=== PATIENT | female | born 1940 | race Caucasian/White ===

== ENCOUNTER 2020-03-05 13:03 | Emergency (ER) | payer OTHER, MEDICARE ==
[~2020-03-05] VITALS: Ht 167.6 cm; Wt 78.5 kg
[2020-03-05 13:51] VITALS: BP_SYST 144
--- NOTE | 2020-03-05 14:00 | NUR ---
Patient triaged and placed in waiting room. VSS and patient appears in no acute distress at this time. Accompanied by SELF, awaiting available bed, and MD notified of need for MSE.
--- NOTE | 2020-03-05 15:59 | NUR ---
Patient to ER bed 4 to gown for evaluation. Side rails up. Report given to LINDA KENNEY.
[2020-03-05] MEDS ORDERED: NACL 0.9% 1,000 ML IV ONE (16:16)
[2020-03-05] MEDS ORDERED: SIMV40TA5 PO (16:17)
[2020-03-05] MEDS ORDERED: ESTR42.53 TP (16:18)
--- NOTE | 2020-03-05 16:23 | NUR ---
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
[2020-03-05] MEDS ORDERED: LORazepam 2 MG/ML VIAL IVP ONE (16:30)
--- NOTE | 2020-03-05 16:36 | NUR ---
REASSESSMENT; PATIENT REMAINS SEDATE AND UNCHANGED; HR BETWEEN 118 AND 127 AFTER INJECTION
[2020-03-05 16:40] LABS: BASOPHILS # (AUTO) 0.1 K/uL (0.0-0.2); EOSINOPHILS % (AUTO) 0.1 % (0.0-4.0); HEMATOCRIT 47.5 % (36-48); HEMOGLOBIN 15.8 g/dL (12.0-16.0); LYMPHOCYTES # (AUTO) 1.8 K/uL (1.0-5.5); LYMPHOCYTES % (AUTO) 30.4 % (20.5-51.5); MEAN CORPUSCULAR HEMOGLOBIN 29 pg (27-31); MEAN CORPUSCULAR HGB CONC 33 % (32-36); MEAN CORPUSCULAR VOLUME 88 fL (79.0-98.0); MONOCYTES # (AUTO) 0.6 K/uL (0.0-1.0); MONOCYTES % (AUTO) 9.6 % (1.7-9.3); NEUTROPHILS # (AUTO) 3.6 K/uL (1.8-7.7); NEUTROPHILS % (AUTO) 58.9 % (40.0-70.0); PLATELET COUNT (AUTO) 289 K/uL (130-430); RED BLOOD CELL COUNT(AUTO) 5.38 MIL/uL (4.2-6.2); RED CELL DISTRIBUTION WIDTH 14.8 % (9.0-15.0)
[2020-03-05 16:48] LABS: ANION GAP 10 (5-15); CALCIUM 10.1 mg/dL (8.4-11.0); CHLORIDE 106 mmol/L (98-107); CREATININE 0.91 mg/dL (0.55-1.30); GLUCOSE 101 mg/dL (70-99); POTASSIUM 4.1 mmol/L (3.5-5.1); SODIUM SERUM 142 mmol/L (136-145); UREA NITROGEN, BLOOD 19 mg/dL (8-21)
[2020-03-05 16:51] LABS: PROTHROMBIN TIME 10.5 SECS (9.5-12.5)
[2020-03-05 16:52] LABS: BILIRUBIN,URINE NEGATIVE (NEGATIVE); BLOOD, URINE NEGATIVE (NEGATIVE); CLARITY/URINE CLEAR (CLEAR); COLOR,URINE YELLOW (YELLOW); GLUCOSE,URINE NEGATIVE (NEGATIVE); KETONES,URINE NEGATIVE (NEGATIVE); LEUKOCYTE ESTERASE ,URINE TRACE (NEGATIVE); NITRITE, URINE NEGATIVE (NEGATIVE); PH,URINE 5.5 (5.0-8.0); PROTEIN URINE NEGATIVE (NEGATIVE); UROBILINOGEN,URINE 0.2 (0.2-1.0)
[2020-03-05 16:55] LABS: ALANINE AMINOTRANSFERASE 35 U/L (12-78); ALBUMIN 4.1 g/dL (3.4-4.8); ASPARTATE AMINOTRANSFERASE 21 U/L (10-37); LIPASE 100 U/L (73-393); TOTAL BILIRUBIN 0.6 mg/dL (0.0-1.0)
[2020-03-05 17:00] LABS: BACTERIA,URINE FEW /HPF (None Seen); RBC,URINE 0-3 /HPF (0-3)
[2020-03-05 17:01] LABS: MUCUS,URINE None Seen /LPF (None Seen)
--- NOTE | 2020-03-05 18:28 | NUR ---
REASSESSMENT; PATIENT DENIES ANY SYMPTOMS; DISPOSITION PENDING
[2020-03-05] MEDS ORDERED: DILTIAZEM HCL 25 MG/5 ML VIAL IVP ONE (18:30)
--- NOTE | 2020-03-05 18:37 | NUR ---
IV INJECTION OVER FIVE MINUTES
--- NOTE | 2020-03-05 18:42 | NUR ---
HEART RATE SLOWER AFTER INJECTION; PATIENT REMAINS ASYMPTOMATIC AND SEDATE
--- NOTE | 2020-03-05 19:12 | NUR ---
Received report from ANNE MARIE Patton.
[2020-03-05 19:29] VITALS: BP_SYST 116
--- NOTE | 2020-03-05 19:29 | NUR ---
Patient given written and verbal discharge instructions and verbalizes understanding. ER MD discussed with patient the results and treatment provided. Patient in stable condition. ID arm band removed. IV catheter removed intact and dressing applied, no active bleeding. Rx of Ativan given. Patient educated on pain management and to follow up with PMD. If have worse symtoms, must return right away or call 911. Pain Scale 0/10. Opportunity for questions provided and answered. Medication side effect fact sheet provided.
== END 2020-03-05 19:29 | disposition home or self-care (01) ==
LOC: SED 13:03
DX: F41.9 Anxiety disorder, unspecified (principal); R00.2 Palpitations; I10 Essential (primary) hypertension; E78.5 Hyperlipidemia, unspecified; Z79.82 Long term (current) use of aspirin; Z90.710 Acquired absence of both cervix and uterus
CPT/HCPCS: 36415; 80053; 81000; 82550; 83690; 84484; 85025; 85610; 85730; 93005; 96374; 96375; 99284; J2060; J3490; J7030

== ENCOUNTER 2021-09-07 11:11 | Inpatient (IN) | payer OTHER, MEDICARE, SELFPAY ==
[~2021-09-07] VITALS: Ht 165.1 cm; Wt 76.3 kg
[2021-09-07 11:11] VITALS: BP_SYST 191
[~2021-09-07 11:11] MED LIST: ESTR42.53 TP; SIMV-46 PO
--- NOTE | 2021-09-07 11:11 | NUR ---
BROUGHT BACK TO BED #5 AND TRIAGED. REPORT GIVEN TO ELEAZAR
--- NOTE | 2021-09-07 11:33 | NUR ---
ER at bedside examining patient.
--- NOTE | 2021-09-07 11:50 | NUR ---
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 states in hind sight she has been having lower back pain on and off X 1 week and assumed it was from standing on her feet, currently pain 1/10 to right side
[2021-09-07] MEDS ORDERED: MORPHINE 4 MG INJ. 4 MG/ML VIAL IVP ONE ×2 (12:00→20:15)
--- NOTE | 2021-09-07 12:13 | NUR ---
radiology at bedside for xray
[2021-09-07 12:19] LABS: BILIRUBIN,URINE NEGATIVE (NEGATIVE); CLARITY/URINE TURBID (CLEAR); COLOR,URINE YELLOW (YELLOW); GLUCOSE,URINE NEGATIVE (NEGATIVE); KETONES,URINE NEGATIVE (NEGATIVE); LEUKOCYTE ESTERASE ,URINE NEGATIVE (NEGATIVE); NITRITE, URINE NEGATIVE (NEGATIVE); PROTEIN URINE 1+ (NEGATIVE); UROBILINOGEN,URINE 0.2 (0.2-1.0)
[2021-09-07 12:23] LABS: BLOOD, URINE TRACE (NEGATIVE)
[2021-09-07 12:37] LABS: BACTERIA,URINE MANY /HPF (None Seen)
[2021-09-07 12:54] LABS: BASOPHILS % (AUTO) 0.4 % (0.0-2.0); HEMATOCRIT 40.3 % (36-48); HEMOGLOBIN 13.8 g/dL (12.0-16.0); LYMPHOCYTES # (AUTO) 0.7 K/uL (1.0-5.5); LYMPHOCYTES % (AUTO) 17.9 % (20.5-51.5); MEAN CORPUSCULAR HEMOGLOBIN 29 pg (27-31); MEAN CORPUSCULAR HGB CONC 34 % (32-36); MEAN CORPUSCULAR VOLUME 86 fL (79.0-98.0); MONOCYTES # (AUTO) 0.1 K/uL (0.0-1.0); MONOCYTES % (AUTO) 3.2 % (1.7-9.3); NEUTROPHILS # (AUTO) 3.3 K/uL (1.8-7.7); NEUTROPHILS % (AUTO) 78.5 % (40.0-70.0); PLATELET COUNT (AUTO) 232 K/uL (130-430); RED BLOOD CELL COUNT(AUTO) 4.68 MIL/uL (4.2-6.2); RED CELL DISTRIBUTION WIDTH 14.1 % (9.0-15.0); WHITE BLOOD COUNT (AUTO) 4.2 K/uL (4.8-10.8)
--- NOTE | 2021-09-07 13:03 | NUR ---
Patient transported to radiology via gurney, accompanied by staff.
[2021-09-07 13:12] LABS: ANION GAP 6 (5-15); CALCIUM 9.9 mg/dL (8.4-11.0); CHLORIDE 102 mmol/L (98-107); CREATININE 0.79 mg/dL (0.55-1.30); GLUCOSE 131 mg/dL (70-99); POTASSIUM 3.6 mmol/L (3.5-5.1); SODIUM SERUM 135 mmol/L (136-145); UREA NITROGEN, BLOOD 25 mg/dL (8-21)
[2021-09-07 13:32] LABS: ALANINE AMINOTRANSFERASE 43 U/L (12-78); ALBUMIN 3.9 g/dL (3.4-4.8); ASPARTATE AMINOTRANSFERASE 25 U/L (10-37); LIPASE 72 U/L (73-393); TOTAL BILIRUBIN 0.4 mg/dL (0.0-1.0)
--- NOTE | 2021-09-07 14:07 | NUR ---
Dr. Blunt spoke with pt. regarding test results and admission
[2021-09-07] MEDS ORDERED: VALS80TA2 PO (14:28)
[2021-09-07] MEDS ORDERED: METO25TA6 PO (14:28)
--- NOTE | 2021-09-07 14:28 | NUR ---
Medication reconciliation completed with information provided by pt. Any prior medication reconciliation on file was reviewed and corrected.
[2021-09-07] MEDS ORDERED: cefTRIAXone 1 GM in D5W 50 ML IV ONE (14:45)
[2021-09-07] MEDS ORDERED: cefTRIAXone 1 GM VIAL ONE (15:06)
--- NOTE | 2021-09-07 16:01 | NUR ---
Called [facility] for tele bed, orders rec'd from Dr. Palm
--- NOTE | 2021-09-07 16:43 | NUR ---
report received from ANNE MARIE Cardoza. Will assume all care of patient.
--- NOTE | 2021-09-07 20:06 | NUR ---
DR. GARNER AT BEDSIDE TO SEE PT.
--- NOTE | 2021-09-07 20:06 | NUR ---
Transfer to TELE via ACLS protocol. Licensed nurse present. IV present no signs or symptoms of infiltration.
--- NOTE | 2021-09-07 20:10 | NUR ---
Admission Note Received patient from ER with diagnosis of ABDOMINAL PAIN AND ELEVATED TROPONIN. Initial Plan of Care discussed-patient verbalized understanding. Oriented to room, call light, pain management and safety.
[2021-09-07] MEDS ORDERED: CIPROFLOXACIN HCL 500 MG TABLET PO ONE (20:15)
[2021-09-07] MEDS ORDERED: cefTRIAXone 1 GM IVPB PREMIX 50 ML IV ONE (20:15)
[2021-09-07 21:02] LABS: BASOPHILS # (AUTO) 0.1 K/uL (0.0-0.2); BASOPHILS % (AUTO) 2.2 % (0.0-2.0); HEMATOCRIT 38.1 % (36-48); LYMPHOCYTES % (AUTO) 24.1 % (20.5-51.5); MEAN CORPUSCULAR HEMOGLOBIN 29 pg (27-31); MEAN CORPUSCULAR HGB CONC 34 % (32-36); MEAN CORPUSCULAR VOLUME 86 fL (79.0-98.0); MONOCYTES # (AUTO) 0.3 K/uL (0.0-1.0); MONOCYTES % (AUTO) 6.1 % (1.7-9.3); NEUTROPHILS # (AUTO) 2.8 K/uL (1.8-7.7); NEUTROPHILS % (AUTO) 67.6 % (40.0-70.0); PLATELET COUNT (AUTO) 238 K/uL (130-430); RED BLOOD CELL COUNT(AUTO) 4.44 MIL/uL (4.2-6.2); RED CELL DISTRIBUTION WIDTH 14.4 % (9.0-15.0); WHITE BLOOD COUNT (AUTO) 4.1 K/uL (4.8-10.8)
[2021-09-07] MEDS ORDERED: ACETAMINOPHEN 325 MG TABLET PO PRN (21:30)
[2021-09-07] MEDS ORDERED: NALOXONE HCL 0.4 MG/ML AMP (NARCAN) IVP PRN (21:30)
[2021-09-07] MEDS ORDERED: hydrALAZINE HCL 20 MG/ML VIAL IVP PRN (21:30)
[2021-09-07] MEDS ORDERED: VALSARTAN 80 MG TABLET (DIOVAN) PO SCH (21:30)
[2021-09-07] MEDS ORDERED: MORPHINE 4 MG INJ. 4 MG/ML VIAL IVP PRN (21:30)
[2021-09-07] MEDS ORDERED: ESTRADIOL TP SCH (21:30)
[2021-09-07] MEDS ORDERED: ONDANSETRON HCL 4 MG/2 ML VIAL IVP PRN (21:30)
[2021-09-07] MEDS ORDERED: MORPHINE 2 MG/ML INJ. SYRINGE IVP PRN (21:30)
[2021-09-07] MEDS: LOSARTAN POTASSIUM 50 MG TABLET (COZAAR) PO SCH (22:00)
[2021-09-07 22:06] LABS: ANION GAP 9 (5-15); CALCIUM 9.3 mg/dL (8.4-11.0); CHLORIDE 105 mmol/L (98-107); GLUCOSE 127 mg/dL (70-99); POTASSIUM 3.9 mmol/L (3.5-5.1); SODIUM SERUM 141 mmol/L (136-145); UREA NITROGEN, BLOOD 20 mg/dL (8-21)
[2021-09-07 22:11] LABS: ALANINE AMINOTRANSFERASE 37 U/L (12-78); ALBUMIN 3.7 g/dL (3.4-4.8); ASPARTATE AMINOTRANSFERASE 23 U/L (10-37); TOTAL BILIRUBIN 0.4 mg/dL (0.0-1.0)
[2021-09-07] MEDS ORDERED: ZOLPIDEM TARTRATE 5 MG TABLET PO PRN (22:30)
[2021-09-07 23:51] VITALS: BP_SYST 165
[2021-09-08] VITALS: BP_SYST 169
--- NOTE | 2021-09-08 01:22 | NUR ---
CONSULTATION PAGED/CALLED Reason for Consultation: ABD PAIN Person Who was Notified: CHANDA Consulting Physician: CRYSTAL Production Cook Specialty: Ordering Physician: PATSY
--- NOTE | 2021-09-08 01:24 | NUR ---
CONSULTATION PAGED/CALLED Reason for Consultation: ELEVATED TROP Person Who was Notified: CHANDA Consulting Physician: RASHID Timber Sizer Specialty: Ordering Physician: PATSY
[2021-09-08 04:00] VITALS: BP_SYST 112
--- NOTE | 2021-09-08 07:00 | NUR ---
CLOSING NOTES Patient resting in bed - no s/s pain or distress noted. Respirations even and unlabored - head of bed elevated. IV site patent - no s/s redness, infection, or infiltration. Bed locked and in lowest position. Call light within reach.
[2021-09-08 07:58] LABS: BASOPHILS % (AUTO) 0.7 % (0.0-2.0); EOSINOPHILS % (AUTO) 0.1 % (0.0-4.0); HEMOGLOBIN 13.1 g/dL (12.0-16.0); LYMPHOCYTES # (AUTO) 1.1 K/uL (1.0-5.5); LYMPHOCYTES % (AUTO) 31.1 % (20.5-51.5); MEAN CORPUSCULAR HEMOGLOBIN 30 pg (27-31); MEAN CORPUSCULAR HGB CONC 34 % (32-36); MEAN CORPUSCULAR VOLUME 86 fL (79.0-98.0); MONOCYTES # (AUTO) 0.3 K/uL (0.0-1.0); MONOCYTES % (AUTO) 8.6 % (1.7-9.3); NEUTROPHILS # (AUTO) 2.1 K/uL (1.8-7.7); NEUTROPHILS % (AUTO) 59.5 % (40.0-70.0); PLATELET COUNT (AUTO) 229 K/uL (130-430); RED CELL DISTRIBUTION WIDTH 14.1 % (9.0-15.0); WHITE BLOOD COUNT (AUTO) 3.6 K/uL (4.8-10.8)
[2021-09-08 08:00] VITALS: BP_SYST 146
[2021-09-08] MEDS: SIMVASTATIN 40 MG TABLET PO SCH (09:31)
[2021-09-08] MEDS: LOSARTAN POTASSIUM 50 MG TABLET (COZAAR) PO SCH ×2 (09:32→20:34)
[2021-09-08 09:58] LABS: ANION GAP 8 (5-15); CALCIUM 9.7 mg/dL (8.4-11.0); CHLORIDE 104 mmol/L (98-107); FREE T4 (FREE THYROXINE) 1.3 ng/dl (0.8-1.5); GLUCOSE 107 mg/dL (70-99); POTASSIUM 4.3 mmol/L (3.5-5.1); SODIUM SERUM 139 mmol/L (136-145); THYROID STIMULATING HORMONE 1.26 uIu/mL (0.36-3.74); UREA NITROGEN, BLOOD 22 mg/dL (8-21)
[2021-09-08 12:00] VITALS: BP_SYST 107
[2021-09-08] MEDS ORDERED: DOCUSATE SODIUM 100 MG CAPSULE PO ONE (15:00)
[2021-09-08] MEDS ORDERED: POLYETHYLENE GLYCOL 3350, 17 GM/ POWD.PACK PO ONE (15:00)
[2021-09-08 16:00] VITALS: BP_SYST 110
--- NOTE | 2021-09-08 18:19 | NUR ---
SPOKE WITH DR MIKE REGARDING PREV TROP 0.145, NEW TROP 0.177. NO NEW ORDER AT THIS TIME. PATIENT DENIES DISTRESS, PAIN, OR SOB THROUGHOUT THE SHIFT. WILL CONT TO MONITOR.
--- NOTE | 2021-09-08 18:45 | NUR ---
CLOSING NOTES: PATIENT RESTING IN BED TALKING TO HER FRIEND ON THE PHONE. NO ADDITIONAL DISTRESS NOTED. PATIENT STABLE THROUGHOUT THE SHIFT. ALL NEEDS MET. PATIENT HAS BEEN DOING HER OWN CARE (INDEPENDENT). AMBULATE WITH STEAD GAIT. WILL CONT TO MONITOR.
[2021-09-08 20:00] VITALS: BP_SYST 125
[2021-09-09] VITALS: BP_SYST 121
--- NOTE | 2021-09-09 00:45 | NUR ---
Elevated Troponin: Received a call from the lab, troponin level= 0.117, noted trending down, will let primary RN aware.
--- NOTE | 2021-09-09 01:13 | NUR ---
ELEVATED TROPONIN 0.117 WILL NOTIFY IN THE MORNING - TROPONIN TRENDING DOWN
--- NOTE | 2021-09-09 06:30 | NUR ---
CLOSING NOTES ROUNDING NOTES Patient resting in bed - no s/s pain or distress noted. Respirations even and unlabored - head of bed elevated. IV site patent - no s/s redness, infection, or infiltration. Bed locked and in lowest position. Call light within reach.
[2021-09-09 08:06] VITALS: BP_SYST 133
--- NOTE | 2021-09-09 08:14 | NUR ---
received pt pt in bed , vitals wnl, no fever. c/o discomfort on her abdomen. informed pt that we are waiting for stomach doctor to see her.
[2021-09-09] MEDS: LOSARTAN POTASSIUM 50 MG TABLET (COZAAR) PO SCH (08:19)
[2021-09-09] MEDS: SIMVASTATIN 40 MG TABLET PO SCH (08:20)
[2021-09-09] MEDS ORDERED: POLYETHYLENE GLYCOL 3350, 17 GM/ POWD.PACK PO SCH (09:00)
[2021-09-09] MEDS ORDERED: DOCUSATE SODIUM 100 MG CAPSULE PO SCH (09:00)
[2021-09-09] MEDS ORDERED: DOCU250C14 PO (13:19)
[2021-09-09] MEDS ORDERED: METO25TA6 PO (13:19)
[2021-09-09] MEDS ORDERED: VALS80TA2 PO (13:19)
[2021-09-09] MEDS ORDERED: BISA-79 PO (13:20)
[2021-09-09] MEDS ORDERED: BISACODYL 5 MG TABLET.DR (DULCOLAX) PO ONE (13:30)
[2021-09-09] MEDS ORDERED: DOCUSATE SODIUM 100 MG CAPSULE PO ONE (13:30)
[2021-09-09 15:23] VITALS: BP_SYST 130
[2021-09-09 15:28] VITALS: BP_SYST 130
--- NOTE | 2021-09-09 16:40 | NUR ---
D/C Patient Patient given medication reconciliation form and D/C instructions. Exit Care provided. Patient verbalized understanding. MD discussed with patient the results and treatment provided. Ambulatory with steady gait for discharge to home. Patient in stable condition, ID band removed. IV catheter removed, intact and dressing applied, no active bleeding. ERx of BISACODYL AND COLACE given, VERIFEIED AVAILABILITY OF MED IN [facility]. Patient educated on pain management. All belongings sent with patient.
--- NOTE | 2021-09-09 16:56 | NUR ---
PER CLARKE, SEWING DEMONSTRATOR, NURSE WILL CALL PT TOMORROW.
--- NOTE | 2021-09-11 10:35 | NUR ---
Discharge Planning: DCP confirmed with Led[facility] at [facility] ([phone]) pt was accepted and will be seen, pt DC 09/09/2021.
== END 2021-09-09 16:45 | disposition home health service (06) | DRG 391 ==
LOC: SED 11:11 → STU 16:01
PROVIDERS: ADMIT Internal Medicine; ATTEND Internal Medicine
DX: K59.00 Constipation, unspecified (principal); D66 Hereditary factor VIII deficiency; I24.8 Other forms of acute ischemic heart disease; I44.7 Left bundle-branch block, unspecified; E78.5 Hyperlipidemia, unspecified; M19.90 Unspecified osteoarthritis, unspecified site; E66.9 Obesity, unspecified; K57.90 Diverticulosis of intestine, part unspecified, without perforation or abscess without bleeding; I10 Essential (primary) hypertension; F19.10 Other psychoactive substance abuse, uncomplicated; Z20.822 Contact with and (suspected) exposure to COVID-19; I49.8 Other specified cardiac arrhythmias; Z88.6 Allergy status to analgesic agent; Z79.899 Other long term (current) drug therapy; Z85.828 Personal history of other malignant neoplasm of skin; Z87.440 Personal history of urinary (tract) infections; Z90.710 Acquired absence of both cervix and uterus; Z68.28 Body mass index [BMI] 28.0-28.9, adult
CPT/HCPCS: 36415; 71045; 76376; 76700-TC; 80048; 80053; 81000; 83690; 84439; 84443; 84484; 85025; 87040-TC; 87086; 93005; 93306; 96365; 96375; 99291; G0378; J0360; J0696; J2270; J2405

== ENCOUNTER 2022-05-27 09:00 | Emergency (ER) | payer OTHER, MEDICARE ==
[~2022-05-27] VITALS: Ht 165.1 cm; Wt 78.5 kg
[~2022-05-27 09:00] MED LIST changes: +BISA-79 PO; +DOCU250C14 PO; +METO25TA6 PO; +VALS80TA2 PO
[2022-05-27 09:20] VITALS: BP_SYST 146
--- NOTE | 2022-05-27 09:26 | NUR ---
PT TRIAGED IN TENT WITH C/O COUGH, SORE THROAT AND FEVER X 2 DAYS VSS. ON R/A. NO RESP DISTRESS NOTED. PT BIB NEIGHBOR, HAS HX OF HTN. DR. LOONEY MADE AWARE.
--- NOTE | 2022-05-27 09:28 | NUR ---
DR. LOONEY ASSESSING PT AT THIS TIME.
[2022-05-27] MEDS ORDERED: NIRM1TAB PO (09:30)
[2022-05-27 09:43] VITALS: BP_SYST 144
--- NOTE | 2022-05-27 09:45 | NUR ---
Patient given written and verbal discharge instructions and verbalizes understanding. ER MD discussed with patient the results and treatment provided. Patient in stable condition. ID arm band removed. Rx of NIRMATRELVIR given. Patient educated on pain management and to follow up with PMD. Pain Scale 4/10. Opportunity for questions provided and answered. Medication side effect fact sheet provided.
== END 2022-05-27 09:41 | disposition home or self-care (01) ==
LOC: SED 09:00
DX: U07.1 COVID-19 (principal); J02.9 Acute pharyngitis, unspecified; R50.9 Fever, unspecified; R05.9 Cough, unspecified; I10 Essential (primary) hypertension; E78.5 Hyperlipidemia, unspecified; Z88.6 Allergy status to analgesic agent; Z79.899 Other long term (current) drug therapy
CPT/HCPCS: 99283